=== PATIENT | female | born 1935 | race Caucasian/White ===

== ENCOUNTER 2020-04-25 05:42 | Inpatient (IN) | payer MEDICARE, OTHER ==
[~2020-04-25] VITALS: Ht 165.1 cm; Wt 55.8 kg
[~2020-04-25 05:42] MED LIST: AMLO5CAP40; ATOR10TA
[2020-04-25] MEDS ORDERED: SODIUM CHLORIDE 0.9% 1,000 ML IV ONE (07:00)
[2020-04-25 08:37] LABS: Albumin 3.7 g/dL (3.4-5.0); Anion Gap 6 (5-15); Blood Urea Nitrogen 12 mg/dL (7-18); Calcium 9.1 mg/dL (8.5-10.1); Carbon Dioxide 28 mmol/L (21-32); Chloride 99 mmol/L (98-107); Glucose 131 mg/dL (74-106); Potassium 4.4 mmol/L (3.5-5.1); Sodium 133 mmol/L (136-145)
[2020-04-25 08:40] LABS: Basophils # (auto) 0.1 10 ^3/uL (0-0.2); Basophils % (auto) 0.7 % (0.0-2.0); Eosinophils # (auto) 0 10 ^3/uL (0-0.8); Eosinophils % (auto) 0.3 % (0.0-7.0); Hematocrit 39.3 % (36.0-46.0); Hemoglobin 13.4 g/dL (12.2-16.2); Lymphocytes # (auto) 0.6 10 ^3/uL (0.4-5.4); Lymphocytes % (auto) 7.9 % (10.0-50.0); Mean Corpuscular Hemoglobin 30.3 pg (28.0-32.0); Mean Corpuscular Hgb Conc. 34.2 g/dL (32.0-36.0); Mean Corpuscular Volume 88.5 fL (80.0-100.0); Monocytes # (auto) 0.4 10 ^3/uL (0-1.3); Monocytes % (auto) 4.7 % (0.0-12.0); Neutrophils % (auto) 86.4 % (37.0-80.0); Platelet Count (auto) 303 10^3/uL (140-450); Red Blood Cells 4.44 10^6/uL (4.0-5.20); Red Cell Distribution Width 13.3 % (11.8-14.3)
[2020-04-25 08:43] LABS: Alanine Aminotransferase 23 U/L (13-56); Alkaline Phosphatase 73 U/L (45-117); Aspartate Aminotransferase 16 U/L (15-37); Bilirubin, Total 0.5 mg/dL (0.2-1.0); GFR African American 80 mL/min; GFR Non-African American 66 mL/min; Total Protein 7.7 g/dL (6.4-8.2)
[2020-04-25] MEDS ORDERED: HYDROcodone-ACET 5/325MG TAB PO PRN (10:30)
[2020-04-25] MEDS ORDERED: MORPHINE SULF INJ 2 MG/ML SYRINGE 1ML IV PRN ×2 (10:30)
[2020-04-25] MEDS ORDERED: NITROGLYCERIN 0.4 MG SL TAB SL PRN (10:30)
[2020-04-25] MEDS ORDERED: ONDANSETRON HCL 4 MG/2 ML VIAL IV PRN (10:30)
[2020-04-25] MEDS ORDERED: ACETAMINOPHEN 500 MG TAB PO PRN (10:30)
[2020-04-25] MEDS: FAMOTIDINE 20 MG TAB PO SCH (11:00)
[2020-04-25] MEDS ORDERED: HCTZ25T PO (12:54)
[2020-04-25 13:00] VITALS: BP 150/67
[2020-04-25] MEDS ORDERED: cloNIDine HCL 0.1 MG TAB PO PRN (13:15)
[2020-04-25] MEDS ORDERED: HCTZ 25 MG TAB PO ONE (13:15)
[2020-04-25 13:49] VITALS: BP 150/67
[2020-04-25 14:32] VITALS: BP 142/60
[2020-04-25 14:33] VITALS: BP_SYST 140; BP_SYST 143; BP_DIAS 66; BP_DIAS 70
[2020-04-25 17:00] VITALS: BP 132/65
[2020-04-25 21:02] LABS: Urine Bacteria NONE SEEN /hpf (None Seen); Urine Blood Negative /uL (Negative); Urine Specific Gravity 1.005 (1.001-1.035); Urine WBC 1 /hpf (0 - 5)
[2020-04-25] MEDS: ATORVASTATIN 20 MG TAB PO SCH (21:13)
[2020-04-25 22:00] VITALS: BP 137/60
[2020-04-26 05:00] VITALS: BP_SYST 111; BP_SYST 125; BP_SYST 129; BP_DIAS 65; BP_DIAS 67
[2020-04-26 06:49] VITALS: BP 134/65
[2020-04-26] MEDS: FAMOTIDINE 20 MG TAB PO SCH (08:57)
[2020-04-26] MEDS: HCTZ 25 MG TAB PO SCH (08:58)
[2020-04-26] MEDS: LOTREL PO SCH (08:58)
[2020-04-26 11:32] LABS: Cholesterol 138 mg/dL (< 200); HDL Cholesterol 75 mg/dL (40-59); LDL Cholesterol 50 mg/dL (< 100); Triglycerides 77 mg/dL (< 150)
[2020-04-26 12:41] VITALS: BP 128/64
[2020-04-26 17:04] VITALS: BP 133/62
[2020-04-26 20:59] VITALS: BP 144/78
[2020-04-26] MEDS: ATORVASTATIN 20 MG TAB PO SCH (21:07)
[2020-04-26] MEDS ORDERED: LORazepam 2MG/ML-1ML VIAL IV PRN (23:30)
[2020-04-27 05:00] VITALS: BP_SYST 122; BP_SYST 149; BP_SYST 154; BP_DIAS 67; BP_DIAS 70
[2020-04-27 09:00] VITALS: BP 126/62
[2020-04-27] MEDS: HCTZ 25 MG TAB PO SCH (09:25)
[2020-04-27] MEDS: FAMOTIDINE 20 MG TAB PO SCH (09:25)
[2020-04-27] MEDS: LOTREL PO SCH (09:26)
== END 2020-04-27 13:40 | disposition home or self-care (01) | DRG 312 ==
LOC: ER 05:42 → EDBD 05:42 → TELE 05:43 → TELE-WESTW 12:36
PROVIDERS: ADMIT Nurse Practitioner Acute Care; ATTEND Family Medicine
DX: R55 Syncope and collapse (principal); R00.1 Bradycardia, unspecified; E78.5 Hyperlipidemia, unspecified; F17.200 Nicotine dependence, unspecified, uncomplicated; I10 Essential (primary) hypertension; I44.0 Atrioventricular block, first degree; Z79.899 Other long term (current) drug therapy; Z80.0 Family history of malignant neoplasm of digestive organs; Z90.710 Acquired absence of both cervix and uterus; Z82.49 Family history of ischemic heart disease and other diseases of the circulatory system
CPT/HCPCS: 36415; 70450; 70551; 71045; 80053; 80061; 81001; 84443; 84484; 85025; 93306; 93886; G0378